=== PATIENT | female | born 2000 | race Caucasian/White ===

== ENCOUNTER 2018-04-17 23:36 | Emergency (ER) | payer OTHER ==
[~2018-04-17] VITALS: Ht 167.6 cm; Wt 90.5 kg
[2018-04-17] MEDS ORDERED: DEPO-PROVER150 MG/M1 IM (23:45)
[2018-04-18 00:05] LABS: URINE BILIRUBIN NEGATIVE (Negative); URINE BLOOD NEGATIVE (Negative); URINE CLARITY CLEAR; URINE COLOR YELLOW; URINE GLUCOSE-RANDOM NEGATIVE (Negative); URINE KETONES NEGATIVE (Negative); URINE LEUKOCYTES-REFLEX NEGATIVE (Negative); URINE NITRITE-REFLEX NEGATIVE (Negative); URINE PROTEIN NEGATIVE (Negative); URINE SPECIFIC GRAVITY 1.025 (1.005-1.030); URINE UROBILINOGEN 0.2 E.U./dl (0.2-1.0)
[2018-04-18 00:11] LABS: AMP/METHAMP Negative (Negative); BARBITURATES Negative (Negative); BENZODIAZEPINES Negative (Negative); COCAINE Negative (Negative); METHADONE Negative (Negative); OPIATES Negative (Negative); PCP Negative (Negative); THC POSITIVE (Negative)
[2018-04-18 00:14] LABS: ABSOLUTE BASOPHILS 0.1 thou/uL (0.0-0.2); ABSOLUTE EOSINOPHILS 0.1 thou/uL (0.0-0.7); ABSOLUTE LYMPHOCYTES 1.7 thou/uL (0.8-5.3); ABSOLUTE MONOCYTES 0.6 thou/uL (0.0-1.2); ABSOLUTE NEUTROPHILS 4.7 thou/uL (1.6-8.1); EOSINOPHILS 1.2 %; HEMATOCRIT 41.1 % (37.0-47.0); HEMOGLOBIN 14.1 gm/dL (12.0-15.0); LYMPHOCYTES 23.5 %; MCH 29.6 pg (26.0-34.0); MCHC 34.3 g/dL (28.0-37.0); MCV 86.3 fL (80.0-100.0); MONOCYTES 8.1 %; NUCLEATED RBCS 0 /100WBC; PLATELET COUNT* 225 thou/uL (150-400); POLYS 66.2 %; RBC 4.77 mil/uL (4.20-5.00); RDW-CV 13.1 % (10.5-14.5); WBC 7.1 thou/uL (4.0-11.0)
[2018-04-18 00:34] LABS: ANION GAP 8 mmol/L (7-16); BUN 16 mg/dL (7-18); CALCIUM 9.1 mg/dL (8.5-10.1); CHLORIDE 105 mmol/L (98-107); CO2 28 mmol/L (21-32); CREATININE 1.1 mg/dL (0.6-1.3); GLUCOSE 94 mg/dL (70-99); POTASSIUM 3.6 mmol/L (3.5-5.1); SODIUM 141 mmol/L (136-145)
[2018-04-18 00:44] LABS: ALBUMIN 3.8 g/dL (3.4-5.0); ALKALINE PHOSPHATASE 61 U/L (46-116); NT-PRO BRAIN NAT PEPTIDE 23 pg/mL (<300); SGOT 12 U/L (15-37); SGPT 19 U/L (30-65); TOTAL BILIRUBIN 1.2 mg/dL (<0.1-1.0); TOTAL PROTEIN 7.6 g/dL (6.4-8.2); TROPONIN-I LEVEL <0.06 ng/mL (<0.06)
[2018-04-18 02:13] VITALS: BP 131/77
--- NOTE | 2018-04-18 11:14 | EKG ---
[place] [address] ELECTROCARDIOGRAM REPORT Name: JOSE ANTONIO RODRIGUEZ Room: [facility]#: [id number] Admission: 04/17/18 Attend Phys: Discharge: 04/18/18 Date of : [birth year] Report #: [id number] THIS REPORT FOR: //name// [facility] ED Test Date: 2018-04-17 Test Time: 23:42:48 Pat Name: JOSE ANTONIO RODRIGUEZ Department: Room: Gender: F Director Of Coding: 9 : 2000 Requested By: Brianna Stack Order Number: [id number] MD: Howie Sal Measurements Intervals [place] Rate: 106 P: 32 MD: 153 QRS: 67 QRSD: 90 T: 0 QT: 353 QTc: 469 Interpretive Statements Sinus tachycardia Probable left atrial enlargement No previous ECG available for comparison Electronically Signed On 04-18-2018 11:14:38 CDT by Howie Sal [email or web address] <ELECTRONICALLY SIGNED> By: Howie Sal MD, [facility] 04/18/18 [id number] Howie Sal MD, FACC /EPI
== END 2018-04-18 02:13 | disposition home or self-care (01) ==
LOC: M.ERS 23:36
PROVIDERS: Emergency Medicine
DX: R00.0 Tachycardia, unspecified (principal); R55 Syncope and collapse; Z88.8 Allergy status to other drugs, medicaments and biological substances

== ENCOUNTER → 2018-06-01 | Outpatient (CLI) | payer OTHER ==
[~2018-06-01] MED LIST: DEPO-PROVER150 MG/M1 IM
== END ==
LOC: M.ULTRA 13:17
DX: N39.0 Urinary tract infection, site not specified (principal); R10.30 Lower abdominal pain, unspecified